=== PATIENT | male | born 1995 ===

== ENCOUNTER 2023-10-02 15:57 | Outpatient (CLI) | payer BC, SELFPAY | END 2023-10-02 15:58 | disposition home or self-care (01) | LOC: NFLDREF 10-05 12:37 | PROVIDERS: PCP Family Medicine; Referring Provider Family Medicine; Visit Provider Family Medicine | DX: Z13.220 Encounter for screening for lipoid disorders (principal); Z13.1 Encounter for screening for diabetes mellitus | CPT/HCPCS: 80061; 82947 ==

== ENCOUNTER 2024-09-30 07:42 | Outpatient (CLI) | payer BC, SELFPAY | END 2024-09-30 07:43 | disposition home or self-care (01) | LOC: NFLDREF 10-01 19:21 | PROVIDERS: PCP Family Medicine; Referring Provider Family Medicine; Visit Provider Family Medicine | DX: Z13.6 Encounter for screening for cardiovascular disorders (principal) | CPT/HCPCS: 80061 ==

== ENCOUNTER 2024-11-02 08:56 | Outpatient (CLI) | payer BC, SELFPAY | END 2024-11-02 08:57 | disposition home or self-care (01) | LOC: NFLDREF 08:57 | PROVIDERS: PCP Family Medicine; Visit Provider Obstetrics & Gynecology | DX: Z31.441 Encounter for testing of male partner of patient with recurrent pregnancy loss (principal) | CPT/HCPCS: 88262 ==